=== PATIENT | male | born 1955 | race Caucasian/White ===

== ENCOUNTER 2017-07-10 15:35 | Emergency (ER) | payer MEDICAID, OTHER ==
[~2017-07-10] VITALS: Ht 180.3 cm; Wt 98.9 kg
[2017-07-10 15:45] VITALS: BP 159/101
== END 2017-07-10 16:56 | disposition home or self-care (01) ==
LOC: ER 15:41
DX: L03.012 Cellulitis of left finger (principal); E11.9 Type 2 diabetes mellitus without complications; Z91.09 Other allergy status, other than to drugs and biological substances
CPT/HCPCS: 10060; 73140